=== PATIENT | male | born 1985 | race Caucasian/White ===

== ENCOUNTER 2023-09-16 10:59 | Inpatient (IN) | payer OTHER ==
[~2023-09-16] VITALS: Ht 165.1 cm; Wt 59.0 kg
[2023-09-16] MEDS ORDERED: VANCOMYCIN IV 200 ML ONE ×2 (11:27→20:14)
[2023-09-16] MEDS ORDERED: PIPERACILLIN/TAZOBACTAM/D5W 50 ML IV ONE (11:27)
[2023-09-16] MEDS: IV NORMAL SALINE 1000 ML BAG IV ONE (12:03)
[2023-09-16] MEDS: PIPERACILLIN SODIUM/TAZOBACTAM 3.375 G in IV DEXTROSE 5% 50 ML IV ONE (12:04)
[2023-09-16] MEDS: VANCOMYCIN IV 1,000 MG in IV DEXTROSE 5% 250 ML IV ONE (12:28)
[2023-09-16 14:31] LABS: *BILIRUBIN,URIN NEGATIVE (NEGATIVE); *BLOOD, URINE NEGATIVE (NEGATIVE); *CLARITY,URINE CLEAR (CLEAR); *COLOR,URINE YELLOW (YELLOW); *KETONES,URINE NEGATIVE (NEGATIVE); *PROTEIN,URINE NEGATIVE (NEGATIVE); *UROBILINOGEN,URINE 0.2 E.U./dl (NORMAL); LEUKOCYTE ESTERASE ,URINE NEGATIVE (NEGATIVE); NITRITE, URINE NEGATIVE (NEGATIVE); PH,URINE 7.5 (5.0-8.0); UGLUCOSE NEGATIVE (NEGATIVE)
[2023-09-16 14:39] LABS: CALCIUM 7.8 mg/dL (8.5-10.1); CARBON DIOXIDE 24 mmol/L (21-32); CHLORIDE 105 mmol/L (98-107); CREATININE 0.7 mg/dL (0.6-1.3); GLUCOSE 120 mg/dL (74-106); POTASSIUM 3.5 mmol/L (3.5-5.1); SODIUM SERUM 137 mmol/L (136-145); UREA NITROGEN, BLOOD 9 mg/dL (7-18)
[2023-09-16 14:46] LABS: ETHANOL < 3 MG/DL (0-10)
[2023-09-16 14:47] LABS: *AMPHETAMINE, URINE POSITIVE (NEGATIVE); *BARBITURATE, URINE NEGATIVE (NEGATIVE); *BENZODIAZEPINE, URINE NEGATIVE (NEGATIVE); *CANNABINOID, URINE NEGATIVE (NEGATIVE); *COCCAINE, URINE NEGATIVE (NEGATIVE); *OPIATE, URINE NEGATIVE (NEGATIVE); *PHENCYCLIDINE SCREEN,URINE NEGATIVE (NEGATIVE); FENTANYL, URINE NEGATIVE (NEGATIVE)
[2023-09-16 14:55] LABS: ACETAMINOPHEN < 2.0 ug/mL (10-30); ALANINE AMINOTRANSFERASE 13 U/L (16-63); ALKALINE PHOSPHATASE 109 U/L (50-136); ASPARTATE AMINOTRANSFERASE 9 U/L (15-37); BILIRUBIN,DIRECT 0.2 mg/dL (0.0-0.2); BILIRUBIN,TOTAL 0.7 mg/dL (0.2-1.0); TOTAL PROTEIN, SERUM 6.1 g/dL (6.4-8.2)
[2023-09-16 15:02] LABS: BASOPHILS % (AUTO) 0.3 % (0.0-2.0); EOSINOPHILS # (AUTO) 0.2 K/uL (0.0-0.7); HEMATOCRIT 36.8 % (36.7-47.1); HEMOGLOBIN 12.2 g/dL (12.5-16.3); LYMPHOCYTES # (AUTO) 0.8 K/uL (0.8-4.8); LYMPHOCYTES % (AUTO) 7.3 % (20.5-51.5); MEAN CORPUSCULAR HEMOGLOBIN 27.9 uug (23.8-33.4); MEAN CORPUSCULAR HGB CONC 33 g/dL (32.5-36.3); MEAN CORPUSCULAR VOLUME 84.5 fL (73.0-96.2); MONOCYTES # (AUTO) 0.5 K/uL (0.1-1.30); MONOCYTES % (AUTO) 4.7 % (0.0-11.0); NEUTROPHILS # (AUTO) 9.1 K/uL (1.8-8.9); NEUTROPHILS % (AUTO) 85.7 % (38.5-71.5); PLATELET COUNT (AUTO) 242 K/uL (152-348); RED BLOOD CELL COUNT(AUTO) 4.36 MIL/uL (4.06-5.63); RED CELL DISTRIBUTION WIDTH 14.5 % (12.1-16.2); WHITE BLOOD COUNT (AUTO) 10.6 K/uL (3.6-10.2)
[2023-09-16] MEDS ORDERED: ARIP5TAB10 PO (16:14)
[2023-09-16 16:42] VITALS: BP 110/48; TEMP 97.2
[2023-09-16] MEDS ORDERED: MAGNESIUM HYDROXIDE 30 ML LIQUID UDC PO PRN (17:15)
[2023-09-16] MEDS ORDERED: ONDANSETRON 4 MG/2 ML VIAL IV PRN (17:15)
[2023-09-16 19:45] VITALS: BP 105/61; TEMP 98.3; O2SAT 97
[2023-09-16] MEDS: VANCOMYCIN IV 1,000 MG in IV NORMAL SALINE 250 ML IV ONE (20:30)
[2023-09-17] MEDS: HYDROCODONE/APAP 5-325MG TABLET PO PRN (05:01)
[2023-09-17 05:25] VITALS: BP 107/65; TEMP 98.3; O2SAT 100
[2023-09-17] MEDS: ARIPIPRAZOLE 5 MG TABLET PO SCH (08:22)
[2023-09-17 12:00] VITALS: BP 98/60; TEMP 99.8; O2SAT 95
[2023-09-17] MEDS: VANCOMYCIN IV 1,000 MG in IV DEXTROSE 5% 250 ML IV SCH (13:49)
[2023-09-17 16:30] VITALS: BP 107/70; TEMP 100.4; O2SAT 100
[2023-09-17] MEDS: ACETAMINOPHEN 325 MG TABLET PO PRN (16:57)
[2023-09-17 20:16] VITALS: BP 97/54; TEMP 98; O2SAT 99
[2023-09-18 06:48] VITALS: BP 108/68; TEMP 98.1; O2SAT 98
[2023-09-18 12:00] VITALS: BP 101/57; TEMP 98.4; O2SAT 97
[2023-09-18] MEDS: VANCOMYCIN IV 1,000 MG in IV DEXTROSE 5% 250 ML IV SCH (16:15)
[2023-09-18 16:25] VITALS: BP 108/72; TEMP 98.5; O2SAT 99
[2023-09-18 19:59] VITALS: BP 98/54; TEMP 98.4; O2SAT 98
[2023-09-19 06:14] VITALS: BP 102/65; TEMP 98.2; O2SAT 99
[2023-09-19 09:32] VITALS: BP 101/57; TEMP 98; O2SAT 99
[2023-09-19 12:00] VITALS: BP 105/68; TEMP 97.4; O2SAT 100
[2023-09-19 16:50] VITALS: BP 111/76; TEMP 98.3; O2SAT 100
[2023-09-19 22:34] VITALS: BP 109/74; TEMP 98.1; O2SAT 94
[2023-09-20] MEDS: VANCOMYCIN IV 1,000 MG in IV DEXTROSE 5% 250 ML IV SCH (00:17)
[2023-09-20 05:20] VITALS: BP 112/72; TEMP 97.4; O2SAT 99
[2023-09-20] MEDS ORDERED: SULF1TAB48 PO (08:26)
[2023-09-20] MEDS: LORAZEPAM 0.5 MG TABLET PO PRN (10:43)
[2023-09-20] MEDS: NEOMY/BACITRAC/POLYMI OINT 28.35 GM TUBE TOP SCH (11:38)
[2023-09-20 11:52] VITALS: BP 109/68; TEMP 97; O2SAT 97
== END 2023-09-20 14:15 | disposition home or self-care (01) | DRG 351 ==
LOC: ER 10:59 → MEDSURG3 15:58
PROVIDERS: ADMIT Internal Medicine; ATTEND Internal Medicine
PROC: 2W3CX1Z Immobilization of Right Lower Arm using Splint (ICD-10-PCS; principal; 2023-09-16)
DX: S51.812A Laceration without foreign body of left forearm, initial encounter (principal); F10.10 Alcohol abuse, uncomplicated; L03.114 Cellulitis of left upper limb; F31.30 Bipolar disorder, current episode depressed, mild or moderate severity, unspecified; X78.9XXA Intentional self-harm by unspecified sharp object, initial encounter; Y92.410 Unspecified street and highway as the place of occurrence of the external cause; S62.015A Nondisplaced fracture of distal pole of navicular [scaphoid] bone of left wrist, initial encounter for closed fracture; W19.XXXA Unspecified fall, initial encounter; Z91.52 Personal history of nonsuicidal self-harm; Z59.02 Unsheltered homelessness; F15.10 Other stimulant abuse, uncomplicated; Y90.0 Blood alcohol level of less than 20 mg/100 ml; Z79.899 Other long term (current) drug therapy
CPT/HCPCS: 36415; 71045; 73090; 73110; 73130; 83605; 84484; 85025; 85730; 87040; 93005; A4606; A4663; G0378; G0480; J2543; J3370; J7040; J7050

== ENCOUNTER 2023-12-06 09:58 | Emergency (ER) | payer OTHER ==
[~2023-12-06] VITALS: Ht 165.1 cm; Wt 59.0 kg
[~2023-12-06 09:58] MED LIST: ARIP5TAB10 PO; SULF1TAB48 PO
[2023-12-06 11:12] LABS: BASOPHILS # (AUTO) 0.2 K/UL (0.0-0.2); BASOPHILS % (AUTO) 2.5 % (0.0-2.0); EOSINOPHILS # (AUTO) 0.2 K/uL (0.0-0.7); EOSINOPHILS % (AUTO) 2.1 % (0.0-7.0); HEMATOCRIT 44.5 % (36.7-47.1); HEMOGLOBIN 14.9 g/dL (12.5-16.3); LYMPHOCYTES # (AUTO) 1.8 K/uL (0.8-4.8); LYMPHOCYTES % (AUTO) 23.9 % (20.5-51.5); MEAN CORPUSCULAR HGB CONC 34 g/dL (32.5-36.3); MEAN CORPUSCULAR VOLUME 86.5 fL (73.0-96.2); MONOCYTES # (AUTO) 0.6 K/uL (0.1-1.30); MONOCYTES % (AUTO) 8.2 % (0.0-11.0); NEUTROPHILS # (AUTO) 4.7 K/uL (1.8-8.9); NEUTROPHILS % (AUTO) 63.3 % (38.5-71.5); PLATELET COUNT (AUTO) 242 K/uL (152-348); RED BLOOD CELL COUNT(AUTO) 5.14 MIL/uL (4.06-5.63); RED CELL DISTRIBUTION WIDTH 14.5 % (12.1-16.2); WHITE BLOOD COUNT (AUTO) 7.4 K/uL (3.6-10.2)
[2023-12-06 11:25] LABS: DIFFERENTIAL COMMENT 1
[2023-12-06 11:29] LABS: ETHANOL < 3 MG/DL (0-10)
[2023-12-06 11:32] LABS: ALANINE AMINOTRANSFERASE 56 U/L (16-63); ALBUMIN 3.9 g/dL (3.4-5.0); ALKALINE PHOSPHATASE 112 U/L (50-136); ASPARTATE AMINOTRANSFERASE 33 U/L (15-37); BILIRUBIN,DIRECT 0.3 mg/dL (0.0-0.2); BILIRUBIN,TOTAL 1.3 mg/dL (0.2-1.0); CALCIUM 8.9 mg/dL (8.5-10.1); CARBON DIOXIDE 30 mmol/L (21-32); CHLORIDE 104 mmol/L (98-107); CREATININE 0.9 mg/dL (0.6-1.3); GLUCOSE 99 mg/dL (74-106); POTASSIUM 4.3 mmol/L (3.5-5.1); SODIUM SERUM 141 mmol/L (136-145); TOTAL PROTEIN, SERUM 7.3 g/dL (6.4-8.2); UREA NITROGEN, BLOOD 20 mg/dL (7-18)
[2023-12-06 11:34] LABS: ACETAMINOPHEN < 2.0 ug/mL (10-30)
[2023-12-06 11:51] LABS: *CLARITY,URINE CLEAR (CLEAR); *COLOR,URINE YELLOW (YELLOW); *KETONES,URINE 2+ (NEGATIVE); *PROTEIN,URINE TRACE (NEGATIVE); *UROBILINOGEN,URINE 0.2 E.U./dl (NORMAL); LEUKOCYTE ESTERASE ,URINE NEGATIVE (NEGATIVE); NITRITE, URINE NEGATIVE (NEGATIVE); PH,URINE 5.5 (5.0-8.0); UGLUCOSE NEGATIVE (NEGATIVE)
[2023-12-06 11:58] LABS: *AMPHETAMINE, URINE POSITIVE (NEGATIVE); *BARBITURATE, URINE NEGATIVE (NEGATIVE); *BENZODIAZEPINE, URINE NEGATIVE (NEGATIVE); *CANNABINOID, URINE NEGATIVE (NEGATIVE); *COCCAINE, URINE NEGATIVE (NEGATIVE); *OPIATE, URINE NEGATIVE (NEGATIVE); *PHENCYCLIDINE SCREEN,URINE NEGATIVE (NEGATIVE); FENTANYL, URINE NEGATIVE (NEGATIVE)
[2023-12-06 12:01] LABS: *BILIRUBIN,URIN 1+ (NEGATIVE); *BLOOD, URINE TRACE (NEGATIVE)
[2023-12-06 12:50] LABS: BACTERIA,URINE MODERATE /HPF (NONE SEEN); MUCUS,URINE MODERATE /LPF (0-FEW); SQUAMOUS EPITHELIAL CELL,UR FEW /HPF (NONE SEEN)
[2023-12-06 13:08] VITALS: O2SAT 98
[2023-12-06] MEDS ORDERED: IBUPROFEN 600 MG TABLET ONE (14:24)
[2023-12-06] MEDS: IBUPROFEN 600 MG TABLET PO ONE (14:26)
[2023-12-06] MEDS ORDERED: OLANZAPINE 5 MG TABLET ONE (15:28)
[2023-12-06] MEDS: OLANZAPINE 5 MG TABLET PO ONE (15:30)
[2023-12-08 12:12] LABS: *CHLAMYDIA NAA Negative (Negative); *GC NAA Negative (Negative); *TRIC.VAG. NAA Negative (Negative)
== END 2023-12-06 18:58 ==
LOC: ER 09:58
DX: R45.851 Suicidal ideations (principal); F15.10 Other stimulant abuse, uncomplicated; F31.9 Bipolar disorder, unspecified; F17.200 Nicotine dependence, unspecified, uncomplicated; Z20.822 Contact with and (suspected) exposure to COVID-19; Z79.899 Other long term (current) drug therapy; Z59.00 Homelessness unspecified
CPT/HCPCS: 36415; 85025; 87491; 93005; 98960; A4606; A4663; G0480